=== PATIENT | male | born 1975 | race Caucasian/White ===

== ENCOUNTER → 2021-07-12 | Day surgery (SDC) | payer OTHER ==
[~2021-07-12] VITALS: Ht 172.7 cm; Wt 83.9 kg
[~2021-07-12] MED LIST: CETIRIZINE HCL10 MG PO
[2021-07-12 06:52] LABS: HCT 41.8 % (42.0-52.0); HGB 13.8 g/dl (13.2-18.0); MCH 29.6 pg (25.0-31.0); MCV 89.7 fL (78.0-100.0); MPV 10.1 fL (6.0-9.5); RBC 4.66 M/uL (4.70-6.00); RDW 14.3 % (11.5-14.0); WBC 4.7 K/uL (4.0-10.5)
[2021-07-12 07:30] LABS: ALBUMIN 3.5 g/dL (3.4-5.0); BILIRUBIN - TOTAL 0.2 mg/dL (0.2-1.0); BUN/CREAT RATIO (CALC) 12.6 RATIO; CREATININE 0.87 mg/dL (0.67-1.17); GLOBULIN (CALCULATION) 3.1 g/dL; POTASSIUM 3.9 mmol/L (3.5-5.1); TOTAL PROTEIN 6.6 g/dL (6.4-8.2)
== END | disposition home or self-care (01) ==
LOC: FAS 06:11
PROVIDERS: Orthopaedic Surgery
DX: G56.02 Carpal tunnel syndrome, left upper limb (principal)
CPT/HCPCS: 36415; 80053; J1100; J2250; J2405; J2704; J3010; J7120